=== PATIENT | female | born 1995 | race African-American/Black ===

== ENCOUNTER 2016-09-22 11:52 | Emergency (ER) | payer MEDICAID ==
[~2016-09-22] VITALS: Ht 165.1 cm; Wt 80.0 kg
[2016-09-22 12:01] VITALS: BP 158/97; PULSE 72; RESP 16; TEMP 98; O2SAT 95
[2016-09-22 12:53] LABS: BLOOD, URINE LARGE (NEG); COMMENT (UR) CULT NOT INDICATED; CULTURE IF INDICATED CULT NOT INDICATED; GLUCOSE,URINE NEG (NEG); KETONE, URINE NEG (NEG); MUCUS URINE FEW /lpf (OCC); NITRITE,URINE NEG (NEG); SQUAMOUS EPITHELIAL CELL URINE 2 /hpf (0-5); URINE COLOR YELLOW (YELLW/STRAW)
== END 2016-09-22 18:55 | disposition left against medical advice (07) ==
LOC: NETRI 11:52
DX: R10.9 Unspecified abdominal pain (principal); M54.9 Dorsalgia, unspecified
CPT/HCPCS: 81001; 99281

== ENCOUNTER 2016-10-04 16:48 | Emergency (ER) | payer MEDICAID ==
[~2016-10-04] VITALS: Ht 165.1 cm; Wt 70.0 kg
[2016-10-04 16:51] VITALS: BP 157/105; PULSE 82; RESP 16; TEMP 97.9; O2SAT 99
--- NOTE | 2016-10-04 17:22 | PD ---
Physical Exam Time Seen by Provider: 17:19 Narrative PT STATE SHE BELIEVE MISCARRIED TWO WEEKS AGO. NO LONGER BLEEDING. WAS UNCERTAIN OF HOW FAR ALONG SHE WAS. HAS NOT FOLLOWED UP WITH ANYBODY. NO HAVING LOWER ABDOMINAL CRAMPING AND BACK PAIN WITH VAGINAL PAIN. FEELS LIKE HER EPIGASTRIC AREA IS SORE AND FEET HAVE BEEN SWELLING BUT THEY ARE NOT RIGHT NOW. PT HAS NO HX OF ABDOMINAL SURGERIES. SUBJECTIVE FEVER OF CHILLS. PT WITH URINARY FREQUENCY. NO OTHER SYMPTOMS TO REPORT. Data Data Last Documented VS Vital Signs Date Time Temp Pulse Resp B/P Pulse Ox O2 Delivery O2 Flow Rate FiO2 10/04/16 16:51 97.9 82 16 157/105 99 Room Air Orders Beta Hcg (Quant/Titer) (10/04/16 17:22) Complete Blood Count With Diff (10/04/16 17:22) Comprehensive Metabolic Panel (10/04/16 17:22) Lipase (10/04/16 17:22) Urinalysis - C+S If Indicated (10/04/16 17:22) Ed Urine Pregnancytest Poc (10/04/16 17:22) Labs Laboratory Tests Test 10/04/16 17:45 White Blood Count 5.0 TH/MM3 Red Blood Count 5.14 MIL/MM3 Hemoglobin 14.7 GM/DL Hematocrit 45.3 % Mean Corpuscular Volume 88.2 FL Mean Corpuscular Hemoglobin 28.6 PG Mean Corpuscular Hemoglobin 32.5 % Concent Red Cell Distribution Width 13.4 % Platelet Count 222 TH/MM3 Mean Platelet Volume 9.8 FL Neutrophils (%) (Auto) 50.9 % Lymphocytes (%) (Auto) 36.4 % Monocytes (%) (Auto) 11.7 % Eosinophils (%) (Auto) 0.6 % Basophils (%) (Auto) 0.4 % Neutrophils # (Auto) 2.5 TH/MM3 Lymphocytes # (Auto) 1.8 TH/MM3 Monocytes # (Auto) 0.6 TH/MM3 Eosinophils # (Auto) 0.0 TH/MM3 Basophils # (Auto) 0.0 TH/MM3 CBC Comment DIFF FINAL Differential Comment Urine Color YELLOW Urine Turbidity HAZY Urine pH 5.5 Urine Specific [place] 1.021 Urine Protein NEG mg/dL Urine Glucose (UA) NEG mg/dL Urine Ketones 10 mg/dL Urine Occult Blood NEG Urine Nitrite NEG Urine Bilirubin NEG Urine Urobilinogen LESS THAN 2.0 MG/DL Urine Leukocyte Esterase SMALL Urine RBC 1 /hpf Urine WBC 1 /hpf Urine Squamous Epithelial 16 /hpf Cells Urine Mucus FEW /lpf Microscopic Urinalysis Comment CULT NOT INDICATED Sodium Level 138 MEQ/L Potassium Level 4.1 MEQ/L Chloride Level 105 MEQ/L Carbon Dioxide Level 25.7 MEQ/L Anion Gap 7 MEQ/L Blood Urea Nitrogen 10 MG/DL Creatinine 0.79 MG/DL Estimat Glomerular Filtration 110 ML/MIN Rate Random Glucose 81 MG/DL Calcium Level 9.2 MG/DL Total Bilirubin 0.4 MG/DL Aspartate Amino Transf 12 U/L (AST/SGOT) Alanine Aminotransferase 20 U/L (ALT/SGPT) Alkaline Phosphatase 56 U/L Total Protein 7.9 GM/DL Albumin 4.4 GM/DL Lipase 124 U/L Human Chorionic Gonadotropin, LESS THAN 1 Quant MIU/ML MDM Medical Record Reviewed: Yes Supervised Visit with ANA: No Narrative Course PT IN TRIAGE; APPEARS WELL. WORK UP INITIATED Scripts No Active Prescriptions or Reported Meds Condition: Stable Kimber Motta Oct 04, 2016 17:22
[2016-10-04 18:53] LABS: AUTOMATED NEUTROPHIL # 2.5 TH/MM3 (1.8-7.7); BASOPHIL % 0.4 % (0.0-2.0); EOSINOPHIL % 0.6 % (0.0-4.0); HEMATOCRIT 45.3 % (35.0-46.0); HEMO FLAGS DIFF FINAL; LYMPH % 36.4 % (9.0-44.0); LYMPHOCYTE # 1.8 TH/MM3 (1.0-4.8); MEAN CELL VOLUME 88.2 FL (80.0-100.0); MEAN CORPUSCULAR HEMOGLOBIN 28.6 PG (27.0-34.0); MEAN CORPUSCULAR HGB CONC 32.5 % (32.0-36.0); MONO % 11.7 % (0.0-8.0); NEUT % 50.9 % (16.0-70.0); PLATELET COUNT 222 TH/MM3 (150-450); RED BLOOD COUNT 5.14 MIL/MM3 (4.00-5.30); RED CELL DISTRIBUTION WIDTH 13.4 % (11.6-17.2)
[2016-10-04 19:00] LABS: BLOOD, URINE NEG (NEG); COMMENT (UR) CULT NOT INDICATED; CULTURE IF INDICATED CULT NOT INDICATED; GLUCOSE,URINE NEG (NEG); KETONE, URINE 10 mg/dL (NEG); MUCUS URINE FEW /lpf (OCC); NITRITE,URINE NEG (NEG); PH, URINE 5.5 (5.0-8.5); SQUAMOUS EPITHELIAL CELL URINE 16 /hpf (0-5); URINE COLOR YELLOW (YELLW/STRAW)
[2016-10-04 19:20] LABS: ANION GAP 7 MEQ/L (5-15); AST (GOT) 12 U/L (15-37); BICARBONATE 25.7 MEQ/L (21.0-32.0); BLOOD UREA NITROGEN 10 MG/DL (7-18); CHLORIDE 105 MEQ/L (98-107); GLOMERULAR FILTRATION RATE 110 ML/MIN (>89); POTASSIUM 4.1 MEQ/L (3.5-5.1); SODIUM (NA) 138 MEQ/L (136-145)
[2016-10-04 19:25] LABS: ALKALINE PHOSPHATASE 56 U/L (45-117); ALT (GPT) 20 U/L (10-53); BETA HCG QUANT LESS THAN 1 MIU/ML (0-5); TOTAL BILIRUBIN ADULT 0.4 MG/DL (0.2-1.0)
[2016-10-04 21:05] VITALS: BP 158/96; PULSE 81; RESP 16; TEMP 98.2; O2SAT 99
--- NOTE | 2016-10-04 22:16 | PD ---
HPI Chief Complaint: Abdominal Pain Time Seen by Provider: 22:11 Travel History International Travel<30 days: No Contact w/Intl Traveler<30days: No Traveled to known affect area: No History of Present Illness HPI Patient is a 21-year-old female who presents emergency for evaluation of vaginal pain. Patient states she's had sharp intermittent pain for the last 2 weeks since she believes she miscarried. Patient states that she had her normal period 3 weeks ago, a week later she began to bleed again. This prompted her to think that she could be miscarrying. Patient also reports hot flashes. She denies any other complaints at this time. [facility] Past Medical History Medical History: Denies Significant Hx Diminished Hearing: No Neurologic: Yes (migraines) Immunizations Current: Yes Migraines: Yes Tetanus Vaccination: < 5 Years Influenza Vaccination: No ?: LMP: 08/31/16 : 1 Para: 0 Miscarriage: 1 : 0 Past Surgical History Surgical History: No Previous Surgery Social History Alcohol Use: Yes (socially) Tobacco Use: Yes (socially) Substance Use: No Allergies-Medications (Allergen,Severity, Reaction): Coded Allergies: No Known Allergies (Verified , 10/04/16) Reported Meds & Prescriptions Reported Meds & Active Scripts Active No Active Prescriptions or Reported Medications Review of Systems Except as stated in HPI: all other systems reviewed are Neg Cardiovascular: No: Chest Pain or Discomfort Gastrointestinal: No: Nausea Genitourinary: Positive: Other (vaginal pain), No: Dysuria Physical Exam Narrative GENERAL: Well-developed, well-nourished, alert female. Resting comfortably in no acute distress. SKIN: Warm and dry. HEAD: Atraumatic. Normocephalic. EYES: Pupils equal and round. No scleral icterus. No injection or drainage. ENT: No nasal bleeding or discharge. Mucous membranes pink and moist. NECK: Trachea midline. No JVD. CARDIOVASCULAR: Regular rate and rhythm. No murmur appreciated. RESPIRATORY: No accessory muscle use. Clear to auscultation. Breath sounds equal bilaterally. GASTROINTESTINAL: Abdomen soft, non-tender, nondistended. Hepatic and splenic margins not palpable. MUSCULOSKELETAL: No obvious deformities. No clubbing. No cyanosis. No edema. NEUROLOGICAL: Awake and alert. No obvious cranial nerve deficits. Motor grossly within normal limits. Normal speech. PSYCHIATRIC: Appropriate mood and affect; insight and judgment normal. Data Data Last Documented VS Vital Signs Date Time Temp Pulse Resp B/P Pulse Ox O2 Delivery O2 Flow Rate FiO2 10/04/16 21:05 98.2 81 16 158/96 99 Room Air Orders Beta Hcg (Quant/Titer) (10/04/16 17:22) Complete Blood Count With Diff (10/04/16 17:22) Comprehensive Metabolic Panel (10/04/16 17:22) Lipase (10/04/16 17:22) Urinalysis - C+S If Indicated (10/04/16 17:22) Ed Urine Pregnancytest Poc (10/04/16 17:22) Gc And Chlamydia Pcr (10/04/16 22:28) Wet Prep Profile (10/04/16 22:28) Labs Laboratory Tests Test 10/04/16 17:45 White Blood Count 5.0 TH/MM3 Red Blood Count 5.14 MIL/MM3 Hemoglobin 14.7 GM/DL Hematocrit 45.3 % Mean Corpuscular Volume 88.2 FL Mean Corpuscular Hemoglobin 28.6 PG Mean Corpuscular Hemoglobin 32.5 % Concent Red Cell Distribution Width 13.4 % Platelet Count 222 TH/MM3 Mean Platelet Volume 9.8 FL Neutrophils (%) (Auto) 50.9 % Lymphocytes (%) (Auto) 36.4 % Monocytes (%) (Auto) 11.7 % Eosinophils (%) (Auto) 0.6 % Basophils (%) (Auto) 0.4 % Neutrophils # (Auto) 2.5 TH/MM3 Lymphocytes # (Auto) 1.8 TH/MM3 Monocytes # (Auto) 0.6 TH/MM3 Eosinophils # (Auto) 0.0 TH/MM3 Basophils # (Auto) 0.0 TH/MM3 CBC Comment DIFF FINAL Differential Comment Urine Color YELLOW Urine Turbidity HAZY Urine pH 5.5 Urine Specific [place] 1.021 Urine Protein NEG mg/dL Urine Glucose (UA) NEG mg/dL Urine Ketones 10 mg/dL Urine Occult Blood NEG Urine Nitrite NEG Urine Bilirubin NEG Urine Urobilinogen LESS THAN 2.0 MG/DL Urine Leukocyte Esterase SMALL Urine RBC 1 /hpf Urine WBC 1 /hpf Urine Squamous Epithelial 16 /hpf Cells Urine Mucus FEW /lpf Microscopic Urinalysis Comment CULT NOT INDICATED Sodium Level 138 MEQ/L Potassium Level 4.1 MEQ/L Chloride Level 105 MEQ/L Carbon Dioxide Level 25.7 MEQ/L Anion Gap 7 MEQ/L Blood Urea Nitrogen 10 MG/DL Creatinine 0.79 MG/DL Estimat Glomerular Filtration 110 ML/MIN Rate Random Glucose 81 MG/DL Calcium Level 9.2 MG/DL Total Bilirubin 0.4 MG/DL Aspartate Amino Transf 12 U/L (AST/SGOT) Alanine Aminotransferase 20 U/L (ALT/SGPT) Alkaline Phosphatase 56 U/L Total Protein 7.9 GM/DL Albumin 4.4 GM/DL Lipase 124 U/L Human Chorionic Gonadotropin, LESS THAN 1 Quant MIU/ML MDM Medical Decision Making Medical Screen Exam Complete: Yes Emergency Medical Condition: Yes Interpretation(s) Laboratory Tests Test 10/04/16 17:45 White Blood Count 5.0 TH/MM3 Red Blood Count 5.14 MIL/MM3 Hemoglobin 14.7 GM/DL Hematocrit 45.3 % Mean Corpuscular Volume 88.2 FL Mean Corpuscular Hemoglobin 28.6 PG Mean Corpuscular Hemoglobin 32.5 % Concent Red Cell Distribution Width 13.4 % Platelet Count 222 TH/MM3 Mean Platelet Volume 9.8 FL Neutrophils (%) (Auto) 50.9 % Lymphocytes (%) (Auto) 36.4 % Monocytes (%) (Auto) 11.7 % Eosinophils (%) (Auto) 0.6 % Basophils (%) (Auto) 0.4 % Neutrophils # (Auto) 2.5 TH/MM3 Lymphocytes # (Auto) 1.8 TH/MM3 Monocytes # (Auto) 0.6 TH/MM3 Eosinophils # (Auto) 0.0 TH/MM3 Basophils # (Auto) 0.0 TH/MM3 CBC Comment DIFF FINAL Differential Comment Urine Color YELLOW Urine Turbidity HAZY Urine pH 5.5 Urine Specific [place] 1.021 Urine Protein NEG mg/dL Urine Glucose (UA) NEG mg/dL Urine Ketones 10 mg/dL Urine Occult Blood NEG Urine Nitrite NEG Urine Bilirubin NEG Urine Urobilinogen LESS THAN 2.0 MG/DL Urine Leukocyte Esterase SMALL Urine RBC 1 /hpf Urine WBC 1 /hpf Urine Squamous Epithelial 16 /hpf Cells Urine Mucus FEW /lpf Microscopic Urinalysis Comment CULT NOT INDICATED Sodium Level 138 MEQ/L Potassium Level 4.1 MEQ/L Chloride Level 105 MEQ/L Carbon Dioxide Level 25.7 MEQ/L Anion Gap 7 MEQ/L Blood Urea Nitrogen 10 MG/DL Creatinine 0.79 MG/DL Estimat Glomerular Filtration 110 ML/MIN Rate Random Glucose 81 MG/DL Calcium Level 9.2 MG/DL Total Bilirubin 0.4 MG/DL Aspartate Amino Transf 12 U/L (AST/SGOT) Alanine Aminotransferase 20 U/L (ALT/SGPT) Alkaline Phosphatase 56 U/L Total Protein 7.9 GM/DL Albumin 4.4 GM/DL Lipase 124 U/L Human Chorionic Gonadotropin, LESS THAN 1 Quant MIU/ML Vital Signs Date Time Temp Pulse Resp B/P Pulse Ox O2 Delivery O2 Flow Rate FiO2 10/04/16 21:05 98.2 81 16 158/96 99 Room Air 10/04/16 21:01 16 10/04/16 16:51 97.9 82 16 157/105 99 Room Air Differential Diagnosis PID versus urinary tract infection versus miscarriage versus other Narrative Course Patient is a 21-year-old female who presents emergency for evaluation of vaginal pain. Patient does report new sexual partners, she initially but she was miscarrying due to having to menstrual cycles a week apart. Labs and urinalysis are unremarkable. HCG is negative. A pelvic exam was performed. GENITOURINARY: No dysuria, no frequency, white vaginal discharge with fishy odor noted. No bleeding. No cervical motion tenderness. GC and chlamydia ordered and pending, patient will be treated presumptively for bacterial vaginosis. Patient was advised that she will be called with results if she was positive for chlamydia or gonorrhea. She was encouraged to follow- up with a pst manager for routine well woman care, patient was advised that she should be receiving annual Pap smears at her age. Patient was advised to avoid alcohol use with metronidazole. She verbalized understanding of these instructions. Patient is stable for discharge. Diagnosis Primary Impression: Foul smelling vaginal discharge Referrals: [facility] Patient Instructions: Bacterial Vaginosis (ED), General Instructions Additional Instructions: Follow-up with the women's clinic Follow-up with a primary doctor Complete full course of antibiotics as directed Do not drink alcohol while taking metronidazole as it can make you very nauseated and sick. Return to emergency department for any new or worsening symptoms Med/Other Pt SpecificInfo: Prescription(s) given Scripts Metronidazole 500 Mg [id number] Mg PO BID 7 Days Ref 0 Prov:Neha Lorenzo 10/04/16 Disposition: 01 DISCHARGE HOME Condition: Stable Neha Lorenzo GREEN PLUMBER Oct 04, 2016 22:16
[2016-10-04] MEDS ORDERED: METR500T10 PO (22:35)
[2016-10-04 22:43] VITALS: BP 140/81; TEMP 97.8
[2016-10-04] MEDS ORDERED: metroNIDAZOLE 500 MG TAB PO ONE (22:45)
[2016-10-05 00:44] LABS: CHLAMYDIA PCR NOT DETECTED (NOT DETECT); NEISSERIA PCR NOT DETECTED (NOT DETECT)
== END 2016-10-04 22:48 | disposition home or self-care (01) ==
LOC: NEPE 16:48
DX: N76.0 Acute vaginitis (principal)
CPT/HCPCS: 80053; 81001; 83690; 84702; 84703; 85025; 87210; 87491; 87591; 99283

== ENCOUNTER 2018-02-18 10:01 | Emergency (ER) | payer SELFPAY ==
[~2018-02-18] VITALS: Ht 165.1 cm; Wt 88.0 kg
[~2018-02-18 10:01] MED LIST: METR1TAB76 PO
[2018-02-18 10:37] VITALS: BP 149/97; PULSE 83; RESP 18; TEMP 98.3; O2SAT 100
--- NOTE | 2018-02-18 11:16 | PD ---
HPI Chief Complaint: Injury Time Seen by Provider: 11:01 Travel History International Travel<30 days: No Contact w/Intl Traveler<30days: No Traveled to known affect area: No History of Present Illness HPI 22 year-old female presents to the emergency room for evaluation of right volar wrist pain with associated numbness and tingling for the past week. Patient states she has been having numbness and tingling for a long time but states the pain started after she slammed in a dresser door 1 week ago. Tingling is especially bad in the third and fourth fingers. She has not taken anything or done anything for her symptoms. 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 Denies any chronic medical conditions or daily medications. Last menstrual cycle was 3 weeks ago. PFSH Past Medical History Diminished Hearing: No Neurologic: Yes (migraines) Immunizations Current: Yes Migraines: Yes ?: Not LMP: 01/27/18 : 1 Para: 0 Miscarriage: 1 : 0 Social History Alcohol Use: Yes (socially) Tobacco Use: Yes (socially) Substance Use: No Allergies-Medications (Allergen,Severity, Reaction): Coded Allergies: No Known Allergies (Verified Adverse Reaction, Unknown, 02/18/18) Reported Meds & Prescriptions Reported Meds & Active Scripts Active Review of Systems Except as stated in HPI: all other systems reviewed are Neg Physical Exam Narrative GENERAL: Well-nourished, well-developed female in no acute distress. Afebrile. Ambulatory. SKIN: Focused skin assessment warm/dry. No erythema or ecchymosis. HEAD: Normocephalic. EYES: No scleral icterus. No injection or drainage. NECK: Supple, trachea midline. No JVD or lymphadenopathy. CARDIOVASCULAR: Regular rate and rhythm without murmurs, gallops, or rubs. RESPIRATORY: Breath sounds equal bilaterally. No accessory muscle use. MUSCULOSKELETAL: No cyanosis. No obvious edema. 2+ radial pulse. Radial, ulnar, and median nerves intact. Full range of motion of the right wrist and hand. Mild tenderness to palpation over the forearm. Data Data Last Documented VS Vital Signs Date Time Temp Pulse Resp B/P (MAP) Pulse Ox O2 Delivery O2 Flow Rate FiO2 02/18/18 10:37 98.3 83 18 149/97 (114) 100 MDM Medical Decision Making Medical Screen Exam Complete: Yes Emergency Medical Condition: Yes Medical Record Reviewed: Yes Differential Diagnosis Carpal tunnel syndrome, fracture, sprain, strain, contusion Narrative Course 22-year-old female presents to the emergency room for evaluation of right wrist pain and numbness and tingling for the past week. States numbness and tingling started sooner. She works in [employer], preparing food all day. Last menstrual cycle was 3 weeks ago. Physical exam is unremarkable. Wrist is neurovascularly intact. No bony tenderness to palpation. No indication for imaging. Patient likely has exacerbation of carpal tunnel syndrome given injury. She was placed in Velcro wrist splint and told to follow-up with a primary care physician or return for worsening symptoms. She understands and agrees to plan. Diagnosis Primary Impression: Carpal tunnel syndrome of right wrist Referrals: Primary Care Physician Departure Forms: Tests/Procedures, Work Release Enter return to work date: Feb 19, 2018 Additional Instructions: Rest and drink plenty of fluids. Use splint as needed for symptoms. Take ibuprofen with food as directed, as needed for pain. Apply ice to the affected area for 20 minutes at a time, as needed for pain and swelling. Follow-up with a primary care physician. Return to the emergency room for worsening symptoms. Med/Other Pt SpecificInfo: Prescription(s) given Disposition: 01 DISCHARGE HOME Condition: Stable Hui Mcadams Feb 18, 2018 11:16
== END 2018-02-18 11:33 | disposition home or self-care (01) ==
LOC: NEPK 10:01
DX: G56.01 Carpal tunnel syndrome, right upper limb (principal)
CPT/HCPCS: 99282; L3908